=== PATIENT | male | born 1950 | race Caucasian/White ===

== ENCOUNTER 2018-09-07 00:23 | Emergency (ER) | payer OTHER ==
[~2018-09-07] VITALS: Ht 177.8 cm; Wt 95.0 kg
[2018-09-07 00:35] VITALS: Ht 177.8 cm; Wt 95.0 kg
[2018-09-07] MEDS ORDERED: morphine 4 MG/ML VIAL IV STA (00:36)
[2018-09-07] MEDS ORDERED: ONDANSETRON 4 MG INJ IV STA (00:36)
[2018-09-07] MEDS ORDERED: SOD CHLORIDE 0.9% 500 ML IV STA (00:36)
[2018-09-07 02:33] VITALS: BP 129/79; PULSE 62; RESP 16
--- NOTE | 2018-10-11 01:45 | ERD ---
ER Documentation Chief Complaint Chief Complaint sharp non radiating CP since 1600, decreased after ntg x 3, asa 324mg HPI This is a very pleasant [age]-year-old male has been tried on range of motion since 4 PM he said he decreased after nitro, however he said he is been under a lot of stress lately as well. Denies any fevers chills nausea vomiting. Denies any shortness of breath. Patient said the pain was right-sided sharp electric- like. Did not radiate to the left side but radiated to his right shoulder. Denies any shortness of breath. Denies any other current complaints. ROS All systems reviewed and are negative except as per history of present illness. Medications Home Meds No Active Prescriptions or Reported Meds Allergies Allergies: Coded Allergies: Penicillins (Verified Allergy, Unknown, 09/07/18) PMhx/Soc Medical and Surgical Hx: pt denies Medical Hx, pt denies Surgical Hx Hx Alcohol Use: No Hx Substance Use: No Hx Tobacco Use: No Smoking Status: Never smoker Physical Exam Physical Exam Const: No acute distress Head: Atraumatic Eyes: Normal Conjunctiva ENT: Normal External Ears, Nose and Mouth. Neck: Full range of motion. No meningismus. Resp: Clear to auscultation bilaterally Cardio: Regular rate and rhythm, no murmurs Abd: Soft, non tender, non distended. Normal bowel sounds Skin: No petechiae or rashes Back: No midline or flank tenderness Ext: No cyanosis, or edema Neur: Awake and alert Psych: Normal Mood and Affect Results 24 hrs Laboratory Tests Test 09/07/18 00:52 White Blood Count 7.3 10^3/ul Red Blood Count 4.43 10^6/ul Hemoglobin 14.0 g/dl Hematocrit 41.4 % Mean Corpuscular Volume 93.5 fl Mean Corpuscular Hemoglobin 31.6 pg Mean Corpuscular Hemoglobin Concent 33.8 g/dl Red Cell Distribution Width 11.9 % Platelet Count 154 10^3/UL Mean Platelet Volume 11.0 fl Immature Granulocytes % 0.300 % Neutrophils % 44.6 % Lymphocytes % 42.3 % Monocytes % 7.9 % Eosinophils % 4.5 % Basophils % 0.4 % Nucleated Red Blood Cells % 0.0 /100WBC Immature Granulocytes # 0.020 10^3/ul Neutrophils # 3.3 10^3/ul Lymphocytes # 3.1 10^3/ul Monocytes # 0.6 10^3/ul Eosinophils # 0.3 10^3/ul Basophils # 0.0 10^3/ul Nucleated Red Blood Cells # 0.0 10^3/ul Sodium Level 143 mmol/L Potassium Level 3.6 mmol/L Chloride Level 107 mmol/L Carbon Dioxide Level 28 mmol/L Anion Gap 8 Blood Urea Nitrogen 18 mg/dl Creatinine 0.94 mg/dl Est Glomerular Filtrat Rate mL/min > 60 mL/min Glucose Level 119 mg/dl Calcium Level 9.0 mg/dl Total Bilirubin 0.4 mg/dl Direct Bilirubin 0.00 mg/dl Indirect Bilirubin 0.4 mg/dl Aspartate Amino Transf (AST/SGOT) 22 IU/L Alanine Aminotransferase (ALT/SGPT) 22 IU/L Alkaline Phosphatase 78 IU/L Troponin I < 0.012 ng/ml B-Type Natriuretic Peptide 77 PG/ML Total Protein 6.8 g/dl Albumin 4.0 g/dl Globulin 2.80 g/dl Albumin/Globulin Ratio 1.42 Lipase 251 U/L Current Medications Medications Dose Sig/Sayra Start Time Status Last (Trade) Ordered Route PRN Stop Time Admin Dose Reason Admin Sodium 500 ml @ Q1H STAT 09/07/18 DC 09/07/18 Chloride 500 mls/hr IV 00:36 01:07 09/07/18 01:35 Morphine 4 mg ONCE STAT 09/07/18 DC Sulfate IV 00:36 (morphine) 09/07/18 00:37 Ondansetron 4 mg ONCE STAT 09/07/18 DC HCl (Zofran IV 00:36 Inj) 09/07/18 00:37 Procedures/MDM EKG: Rate/Rhythm: Normal Sinus Rhythm QRS, ST, T-waves: No changes consistent w/ acute ischemia Impression: No evidence of ischemia or arrhythmia Chest X-ray 1V Interpreted by me: Soft Tissue: No acute abnormalities Bones: No acute abnormalities Mediastinum/Cardiac Silhouette/Lungs: No acute abnormalities Medical decision make: Patient's thoracic symptoms have stabilized while in the department and are stable for outpatient follow up. Exam and work up not consistent w/ ischemia, arrhythmia, PE or dissection. Departure Diagnosis: Primary Impression: Chest pain Chest pain type: unspecified Qualified Codes: R07.9 - Chest pain, unspecified Condition: Stable Patient Instructions: Anxiety Reaction, Chest Pain, Uncertain Cause MOGHADAM,LAMONT S. Oct 11, 2018 01:45
== END 2018-09-07 02:36 | disposition home or self-care (01) ==
LOC: E/R 00:23
DX: R07.9 Chest pain, unspecified (principal)
CPT/HCPCS: 71045; 80053; 83690; 83880; 84484; 85025; 93005; J2270; J2405; J7040; 36415; 96360